=== PATIENT | female | born 1985 | race Caucasian/White ===

== ENCOUNTER 2016-09-27 11:03 | Inpatient (IN) | payer OTHER ==
[~2016-09-27] VITALS: Ht 167.6 cm; Wt 80.5 kg
[~2016-09-27 11:03] MED LIST: NORCO 325 MG-51 TAB PO; SYNTHROID0.05 MG/TA PO; SYNTHROID0.075 MG/T PO
[2016-11-12] VITALS (18 sets, daily range): BP systolic 92–124; BP diastolic 48–79; PULSE 57–100; TEMP 97.7–98.6
[2016-11-12 09:59] LABS: BASO % 0.1 % (0.0-2.0); EOS # 0.1 (0.0-0.7); EOS % 1.4 % (0-4.0); GRAN # 6.5 (1.4-6.5); GRAN % 72.3 % (42.2-75.2); HEMOGLOBIN 12.3 g/dl (12.5-16.0); LYMPH # 1.7 (1.2-3.4); LYMPH % 18.7 % (20.0-51.0); MEAN CELL VOLUME 90 fl (80.0-100.0); MEAN CORPUSCULAR HEMOGLOBIN 31 pg (27.0-31.0); MEAN CORPUSCULAR HGB CONC 35 g/dl (33.0-37.0); MEAN PLATELET VOLUME 10.2 fl (7.4-10.4); MONO # 0.6 (0.1-0.6); MONO % 6.9 % (1.7-9.3); PLATELET COUNT 151 K/mm3 (130-400); RED BLOOD COUNT 3.93 M/mm3 (4.10-5.30); REDCELL DISTRIBUTION WIDTH-CV 12.9 % (11.5-14.5)
[2016-11-12 10:03] LABS: HEMATOCRIT 35.3 % (37.0-47.0)
[2016-11-13 01:00] VITALS: BP 101/54; PULSE 77; TEMP 98.3
[2016-11-13 07:54] LABS: HEMATOCRIT 30.3 % (37.0-47.0); HEMOGLOBIN 10.4 g/dl (12.5-16.0)
[2016-11-13 08:45] VITALS: BP 111/63; PULSE 78; TEMP 98.4
[2016-11-13 15:00] VITALS: BP 112/62; PULSE 74
[2016-11-13 21:15] VITALS: BP 111/54; PULSE 81; TEMP 98.5
[2016-11-14 07:35] VITALS: BP 103/50; PULSE 76; TEMP 97.3
[2016-11-14] MEDS ORDERED: PERCOCET 325 MG1 TA2 PO (09:07)
[2016-11-14] MEDS ORDERED: IBU600 MG PO (09:07)
== END 2016-11-14 15:45 | disposition home or self-care (01) | DRG 766 ==
LOC: OB 11-12 08:57 → LDR 11-12 12:32 → OB 11-14 15:45 → EDSTATUS 11-19 10:12 → LDRO 11-19 11:02
PROVIDERS: Obstetrics & Gynecology
PROC: 10D00Z1 Extraction of Products of Conception, Low, Open Approach (ICD-10-PCS; principal; 2016-11-12)
DX: O34.211 Maternal care for low transverse scar from previous cesarean delivery (principal); N85.8 Other specified noninflammatory disorders of uterus; O69.81X0 Labor and delivery complicated by cord around neck, without compression, not applicable or unspecified; O99.284 Endocrine, nutritional and metabolic diseases complicating childbirth; E03.9 Hypothyroidism, unspecified; Z3A.39 39 weeks gestation of pregnancy; Z37.0 Single live birth
CPT/HCPCS: J0690; J1885; J2270; J2370; J2405; J2550; J2590; J7120

== ENCOUNTER → 2018-11-24 | Outpatient (CLI) | payer OTHER ==
[~2018-11-24] MED LIST changes: +IBU600 MG PO; +PERCOCET 325 MG1 TA2 PO
== END ==
LOC: COL.RAD 10:22
DX: E04.1 Nontoxic single thyroid nodule (principal)

== ENCOUNTER → 2020-02-16 | Outpatient (CLI) | payer OTHER ==
[2020-02-16 12:49] LABS: BASO # 0.1 (0.0-0.2); BASO % 0.7 % (0.0-2.0); EOS # 0.5 (0.0-0.7); EOS % 5.7 % (0-4.0); GRAN # 5.2 (1.4-6.5); GRAN % 60.9 % (42.2-75.2); HEMATOCRIT 40.9 % (37.0-47.0); HEMOGLOBIN 13.8 g/dl (12.5-16.0); LYMPH # 2.3 (1.2-3.4); LYMPH % 26.7 % (20.0-51.0); MEAN CELL VOLUME 89 fl (80.0-100.0); MEAN CORPUSCULAR HEMOGLOBIN 30 pg (27.0-31.0); MEAN CORPUSCULAR HGB CONC 34 g/dl (33.0-37.0); MONO # 0.5 (0.1-0.6); MONO % 5.8 % (1.7-9.3); PLATELET COUNT 269 K/mm3 (130-400); RED BLOOD COUNT 4.58 M/mm3 (4.10-5.30); REDCELL DISTRIBUTION WIDTH-CV 12.2 % (11.5-14.5)
== END ==
LOC: COL.LAB 12:28
PROVIDERS: Otolaryngology
DX: E03.9 Hypothyroidism, unspecified (principal); E04.1 Nontoxic single thyroid nodule